=== PATIENT | female | born 1950 | race Caucasian/White ===

== ENCOUNTER → 2016-10-27 | Outpatient (CLI) | payer OTHER | LOC: OD 15:07 | PROVIDERS: ATTEND Nurse Practitioner Acute Care | DX: R50.9 Fever, unspecified (principal); R05 Cough | CPT/HCPCS: 71020; 87804 ==

== ENCOUNTER 2017-03-02 01:21 | Emergency (ER) | payer MEDICARE, OTHER ==
[2017-03-02] MEDS ORDERED: DEXAMETHASONE 4 MG TABLET PO ONE (02:45)
[2017-03-02] MEDS ORDERED: VALACYCLOVIR HCL 500 MG TABLET PO ONE (02:46)
[2017-03-02] MEDS ORDERED: MAG HYDROX/AL HYDROX/SIMETH SUSP 30 ML UDCUP PO ONE (02:46)
[2017-03-02] MEDS ORDERED: IBUPROFEN 600 MG TABLET PO ONE (02:51)
--- NOTE | 2017-03-02 02:55 | ER Document Report ---
ED Oral Problem - General Chief Complaint: Mouth Problem Stated Complaint: BLISTERS ON TONGUE Time Seen by Provider: 03/02/17 02:01 Notes: Patient is a 66-year-old female presents to the emergency department with sudden onset of ulcers in pain this evening. She states she woke up this morning out of her sleep with pain along both sides and underneath her tongue. She admits to tongue throughout the day but not as severe or with the presence of ulcers. Denies any bleeding, drainage. no skin lesions along lips, cheeks, face Past medical history significant for rheumatoid arthritis, non-insulin- dependent diabetes, narcolepsy Past surgical history significant for history of hysterectomy, right TKA, left rotator cuff repair, cholecystectomy Social history significant for 20 pack years, denies any alcohol or drug use. Home medications include venlafaxine, terbinafine, aspirin, zatr-tap-gytiukh nasal spray, trazodone, ProAir, Zofran, Adderall, methotrexate, folic acid, metformin, ropinirole Primary care physician is Rema Bob TRAVEL OUTSIDE OF THE [place] IN LAST 30 DAYS: No - Related Data Allergies/Adverse Reactions: Sulfa (Sulfonamide Antibiotics) Allergy (Intermediate, Verified 11/27/15 08:03) itch & "burning" with topical application ONLY Past Medical History - Social History Smoking Status: Unknown if Ever Smoked Family History: Reviewed & Not Pertinent Patient has suicidal ideation: No Patient has homicidal ideation: No - Past Medical History Cardiac Medical History: Reports: Hx Hypercholesterolemia - no meds now, Hx Hypertension - Dx'ed 2010, no meds x 7 months, since 30 lb wt loss Denies: Hx Coronary Artery Disease, Hx Heart Attack Pulmonary Medical History: Reports: Hx Pneumonia - March 2012, antibiotics/ steroids x 3 months, but no hospitalization Denies: Hx Asthma, Hx Bronchitis, Hx COPD, Hx Tuberculosis Neurological Medical History: Denies: Hx Cerebrovascular Accident, Hx Seizures Endocrine Medical History: Reports: Hx Diabetes Mellitus Type 2 - diet controlled since weight loss Renal/ Medical History: Denies: Hx Peritoneal Dialysis GI Medical History: Reports: Hx Irritable Bowel. Denies: Hx Crohn's Disease, Hx Gastroesophageal Reflux Disease, Hx Hiatal Hernia, Hx Liver Failure, Hx Ulcer Musculoskeltal Medical History: Reports Hx Arthritis - Had a right total knee, and is scheduled to have a left total knee done., Reports Hx Muscle Spasm Psychiatric Medical History: Reports: Hx Anxiety, Hx Depression Past Surgical History: Reports: Hx Cholecystectomy - 03/04/14, Hx Hysterectomy, Hx Orthopedic Surgery - right total knee, left rotator cuff repair. Denies: Hx Colostomy, Hx Pacemaker - Immunizations Immunizations up to date: No Hx Diphtheria, Pertussis, Tetanus Vaccination: Yes Review of Systems - Review of Systems Constitutional: No symptoms reported EENT: See HPI Cardiovascular: No symptoms reported Respiratory: No symptoms reported Skin: No symptoms reported -: Yes All other systems reviewed and negative Physical Exam - Vital signs Vitals: Temp Pulse Resp BP Pulse Ox 97.3 F 88 20 150/79 H 95 03/02/17 01:29 03/02/17 01:29 03/02/17 01:29 03/02/17 01:29 03/02/17 01:29 - General General appearance: Appears well, Alert In distress: None - HEENT Head: Normocephalic, Atraumatic Eyes: Normal Eyelashes: Normal Pupils: PERRL Ears: Normal External canal: Normal Tympanic membrane: Normal Sinus: Normal Nasal: Normal Mouth/Lips: Lesions - ulcers Mucous membranes: Normal Pharynx: Normal, Other - no lesions. No: Peritonsillar abscess, Post nasal drainage, Retropharyngeal abscess Neck: Normal - Respiratory Respiratory status: No respiratory distress Chest status: Nontender Breath sounds: Normal Chest palpation: Normal - Cardiovascular Rhythm: Regular Heart sounds: Normal auscultation Pulses: Normal: Radial Normal capillary refill: Yes - Extremities General upper extremity: Normal inspection, Nontender, Normal color, Normal ROM , Normal strength, Normal temperature General lower extremity: Normal inspection, Nontender, Normal color, Normal ROM , Normal strength, Normal temperature - Neurological Neuro grossly intact: Yes Cognition: Normal Orientation: AAOx4 [place] Coma Scale Eye Opening: Spontaneous [place] Coma Scale Verbal: Oriented [place] Coma Scale Motor: Obeys Commands Scott Coma Scale Total: 15 - Skin Skin Temperature: Warm Skin Moisture: Dry Skin Color: Normal, Petechiae Skin irregularity: other - ulcerations tongue underneath bilaterally. Course - Re-evaluation Re-evalutation: 03/02/17 07:00 Patient is a 66-year-old female hemodynamic stable, no distress and afebrile, vital signs stable. Presentation consistent with herpangina. Patient presents with no other skin lesions. Patient initiated on steroids, antivirals and discussion with following up with primary care. - Vital Signs Vital signs: Temp Pulse Resp BP Pulse Ox 97.3 F 84 16 147/72 H 95 03/02/17 01:29 03/02/17 03:06 03/02/17 03:06 03/02/17 03:06 03/02/17 03:06 Discharge - Discharge Clinical Impression: Herpangina Condition: Good Disposition: HOME, SELF-CARE Instructions: Use of Qdsh-Hsn-Sgemyev Ibuprofen ([facility]), Herpes Simplex ([facility]) Additional Instructions: Please take your second dose of Valacyclovir at 3:30 pm on 03/02/2017 Please follow up with your primary care physician Prescriptions: Valacyclovir HCl [Valacyclovir] 2,000 mg PO ONCE PRN #2 tablet PRN Reason: Forms: Elevated Blood Pressure, Smoking Cessation Education Referrals: HAIR BOB MD [NO LOCAL MD] - Follow up as needed
[2017-03-02 04:44] VITALS: BP 147/72
== END 2017-03-02 03:06 | disposition home or self-care (01) ==
LOC: ER 01:21
DX: B08.5 Enteroviral vesicular pharyngitis (principal); F17.210 Nicotine dependence, cigarettes, uncomplicated; E11.9 Type 2 diabetes mellitus without complications; Z90.49 Acquired absence of other specified parts of digestive tract; Z90.710 Acquired absence of both cervix and uterus; Z88.2 Allergy status to sulfonamides
CPT/HCPCS: 99282; A9270 ×3

== ENCOUNTER 2018-10-09 09:02 | Day surgery (SDC) | payer MEDICARE ==
[~2018-10-09 09:02] MED LIST: BUPIVACAINE HCL 0.75% INJ/PF (7.5 MG/1 ML) 10 ML SDV OS PRN; KETOROLAC TROMETHAMINE 0.45% 4 DROP/0.4 ML DROPERETTE OS PRN; LIDOCAINE 4% INJ/PF (40 MG/ML) 5 ML AMPUL OS PRN
[2018-10-09] MEDS ORDERED: CHONDR SU A NA/HYALUR INTRAOC KIT (SURGICARE) ONE (09:48)
[2018-10-09] MEDS ORDERED: EPINEPHRINE INJ/PF 1 MG/1 ML AMPULE ONE (09:48)
[2018-10-09] MEDS ORDERED: LIDOCAINE 1% INJ-PF (10 MG/ML) 30 ML SDV ONE (09:48)
[2018-10-09] MEDS: TETRACAINE HCL 0.5% OPH SOLN 0.6 ML DROPERETTE OS PRN ×2 (10:04→10:30)
[2018-10-09] MEDS: CYCLOPENTOLATE 0.2%/PHENYLEPHRINE 1% OPH SOLN 2 ML OS PRN ×3 (10:05→10:28)
[2018-10-09] MEDS: TROPICAMIDE 1% OPH SOLN 3 ML OS PRN ×3 (10:05→10:28)
[2018-10-09] MEDS: BESIFLOXACIN HCL 0.6% OPH SUSP 5 ML BOTTLE OS PRN ×4 (10:05→11:08)
[2018-10-09] MEDS ORDERED: MIDAZOLAM 2 MG/2 ML INJ ONE (10:33)
[2018-10-09] MEDS ORDERED: FENTANYL CITRATE INJ/PF 100 MCG/2 ML AMPUL ONE (10:33)
--- NOTE | 2018-10-09 14:52 | [facility] DISCHARGE SUMMARY E ---
[facility] Discharge Summary NAME: TOBI MENJIVAR AGE: 68Y ADMITTED: 10/09/2018 DISCHARGED: HOSPITAL COURSE: The patient is a 68-year-old lady who underwent uneventful cataract extraction with intraocular lens implant left eye on 10/09/2018. She will be discharged to home. She is instructed to resume preoperative medications. Take Tylenol as needed for discomfort. To keep her eye shielded. To use Pred Forte, Ilevro, and Vigamox at 3:00 p.m. and 8:00 p.m. To follow up in my office in 1 day. DICTATING PHYSICIAN: DENNISE JONES M.D. [id number] PHY#: [id number] ID: [id number] JOB#: [id number] ACCT: [id number] cc:DENNISE JONES M.D. >
--- NOTE | 2018-10-09 14:52 | [facility] OPERATIVE REPORT E ---
[facility] Operative Report NAME: TOBI MENJIVAR AGE: 68Y DATE OF SURGERY: 10/09/2018 ROOM: [facility] Operative Report PREOPERATIVE DIAGNOSIS: CATARACT, LEFT EYE. POSTOPERATIVE DIAGNOSIS: CATARACT, LEFT EYE. PROCEDURE PERFORMED: PHACOEMULSIFICATION WITH POSTERIOR CHAMBER INTRAOCULAR LENS, LEFT EYE. SURGEON: EDNNISE JONES MD ANESTHESIA: TOPICAL WITH MAC. INDICATIONS FOR SURGERY: Difficulty reading road signs and words on TV. Best corrected visual acuity 20/40. PROCEDURE: The patient was brought to the Operating Room and placed on the operative table. Following tetracaine drops, topical anesthesia was administered. This consisted of instrument wipe pledgets soaked in a solution of 4% Xylocaine mixed with 0.75% Marcaine in a 1:2 ratio. A 2 x 1 cm pledget was placed in the superior fornix. A 1 x 1 cm pledget was placed in the inferior fornix. The eye was patched shut for 5 minutes. The patch was removed. The eye was sterilely prepped and draped in the usual manner. Lid speculum was placed in the eye. The pledgets were removed. 4-0 black silk sutures were placed around the superior and the inferior rectus muscles to be used as traction. A conjunctival peritomy was made at the 10 o'clock position. Hemostasis was obtained with bipolar cautery. A posterior limbal groove was created using a crescent knife and dissected anteriorly towards the cornea. A sharp point blade was used to create a paracentesis site at the 2 o'clock position. A 2.4 mm keratome was used to enter the anterior chamber through the groove. Viscoelastic was injected into the anterior chamber. An anterior capsulotomy was performed using Utrata forceps in a capsulorrhexis fashion. Hydrodissection and hydrodelineation were performed. Phacoemulsification was performed in esciev-ady-qnzeftv technique. A total of 4.95 seconds phaco time was used. Following this, the I/A unit was used to remove residual cortex. Viscoelastic was injected into the capsular bag. Intraocular lens model SN60WF, 22.0 diopters, serial number [id number] was placed in the capsular bag. The I/A unit was used to remove residual viscoelastic. The wound was seen to be watertight under high and low pressure, and no sutures were placed. The intraocular lens was well centered. The pressure was adjusted in the eye to normal pressure. A drop of Cosopt was placed in the eye at the end of surgery. The 4-0 black silk sutures and lid speculum were removed. The eye was shielded after Besivance drops were placed. The patient tolerated the procedure well and was sent to the Recovery Room in good condition. DICTATING PHYSICIAN: DENNISE JONES M.D. DICTATING PHYSICIAN: DENNISE JONES M.D. [id number] Y#: [id number] ID: [id number] JOB#: [id number] ACCT: [id number] cc:DENNISE JONES M.D. >
== END 2018-10-09 11:50 | disposition home or self-care (01) ==
LOC: SC 09:02
PROVIDERS: ATTEND Ophthalmology
DX: H25.813 Combined forms of age-related cataract, bilateral (principal); H53.2 Diplopia; D86.0 Sarcoidosis of lung; E11.9 Type 2 diabetes mellitus without complications; E07.9 Disorder of thyroid, unspecified; M06.9 Rheumatoid arthritis, unspecified; D86.9 Sarcoidosis, unspecified; K58.9 Irritable bowel syndrome, unspecified; F17.210 Nicotine dependence, cigarettes, uncomplicated; E66.9 Obesity, unspecified; Z68.34 Body mass index [BMI] 34.0-34.9, adult; Z88.2 Allergy status to sulfonamides; Z79.899 Other long term (current) drug therapy; Z79.4 Long term (current) use of insulin; Z79.84 Long term (current) use of oral hypoglycemic drugs
CPT/HCPCS: 66984; 82962; V2632; J2250; J3490 ×4; A9270; J0171; J3010; 142

== ENCOUNTER 2018-10-30 08:54 | Day surgery (SDC) | payer MEDICARE ==
[~2018-10-30 08:54] MED LIST changes: +BUPIVACAINE HCL 0.75% INJ/PF (7.5 MG/1 ML) 10 ML SDV OD PRN; -BUPIVACAINE HCL 0.75% INJ/PF (7.5 MG/1 ML) 10 ML SDV OS PRN; +CHONDR SU A NA/HYALUR INTRAOC KIT (SURGICARE) ONE; +DORZOLAMIDE HCL 2%/TIMOLOL MALEAT 0.5% OPH SOLN 10 ML OD PRN; +EPINEPHRINE INJ/PF 1 MG/1 ML AMPULE ONE; +KETOROLAC TROMETHAMINE 0.45% 4 DROP/0.4 ML DROPERETTE OD PRN; -KETOROLAC TROMETHAMINE 0.45% 4 DROP/0.4 ML DROPERETTE OS PRN; +LIDOCAINE 1% INJ-PF (10 MG/ML) 30 ML SDV ONE; +LIDOCAINE 4% INJ/PF (40 MG/ML) 5 ML AMPUL OD PRN; -LIDOCAINE 4% INJ/PF (40 MG/ML) 5 ML AMPUL OS PRN
[2018-10-30] MEDS: TETRACAINE HCL 0.5% OPH SOLN 0.6 ML DROPERETTE OD PRN ×2 (09:52→10:21)
[2018-10-30] MEDS: TROPICAMIDE 1% OPH SOLN 3 ML OD PRN ×3 (09:53→10:18)
[2018-10-30] MEDS: CYCLOPENTOLATE 0.2%/PHENYLEPHRINE 1% OPH SOLN 2 ML OD PRN ×3 (09:53→10:18)
[2018-10-30] MEDS: BESIFLOXACIN HCL 0.6% OPH SUSP 5 ML BOTTLE OD PRN ×3 (09:54→10:55)
[2018-10-30] MEDS ORDERED: MIDAZOLAM 2 MG/2 ML INJ ONE (10:09)
[2018-10-30] MEDS ORDERED: FENTANYL CITRATE INJ/PF 100 MCG/2 ML AMPUL ONE (10:09)
[2018-10-30] MEDS ORDERED: HYALURONATE SODIUM SYRINGE 0.55 ML ONE (10:35)
--- NOTE | 2018-10-30 13:52 | [facility] OPERATIVE REPORT E ---
[facility] Operative Report NAME: TOBI MENJIVAR AGE: 68Y DATE OF SURGERY: 10/30/18 ROOM: [facility] Operative Report PREOPERATIVE DIAGNOSIS: Cataract, right eye. POSTOPERATIVE DIAGNOSIS: Cataract, right eye. PROCEDURE PERFORMED: Phacoemulsification with posterior chamber intraocular lens, right eye. SURGEON: DENNISE JONES MD ANESTHESIA: Topical with MAC. INDICATIONS FOR SURGERY: Difficulty with glare with night driving. PROCEDURE: The patient was brought to the Operating Room and placed on the operative table. Following tetracaine drops, topical anesthesia was administered. This consisted of instrument wipe pledgets soaked in a solution of 4% Xylocaine mixed with 0.75% Marcaine in a 1:2 ratio. A 2 x 1 cm pledget was placed in the superior fornix. A 1 x 1 cm pledget was placed in the inferior fornix. The eye was patched shut for 5 minutes. The patch was removed. The eye was sterilely prepped and draped in the usual manner. Lid speculum was placed in the eye. The pledgets were removed. 4-0 black silk sutures were placed around the superior and the inferior rectus muscles to be used as traction. A conjunctival peritomy was made at the 10 o'clock position. Hemostasis was obtained with bipolar cautery. A posterior limbal groove was created using a crescent knife and dissected anteriorly towards the cornea. A sharp point blade was used to create a paracentesis site at the 2 o'clock position. A 2.4 mm keratome was used to enter the anterior chamber through the groove. Viscoelastic was injected into the anterior chamber. An anterior capsulotomy was performed using Utrata forceps in a capsulorrhexis fashion. Hydrodissection and hydrodelineation were performed. Phacoemulsification was performed in nugool-gsu-bqlblsl technique. Total phaco time 6.77 CDE. Following this, the I/A unit was used to remove residual cortex. Viscoelastic was injected into the capsular bag. Intraocular lens model SN60WF, 22.0 diopters, serial number [id number] was placed in the capsular bag. The I/A unit was used to remove residual viscoelastic. The wound was seen to be watertight under high and low pressure, and no sutures were placed. The intraocular lens was well centered. The pressure was adjusted in the eye to normal pressure. The 4-0 black silk sutures and lid speculum were removed. The eye was shielded after Besivance drops were placed. The patient tolerated the procedure well and was sent to the Recovery Room in good condition. Postoperative placement in the eye at the end of surgery. DICTATING PHYSICIAN: DENNISE JONES M.D. [id number] PHY#: [id number] ID: [id number] JOB#: [id number] ACCT: [id number] cc:DENNISE JONES M.D. > MTDD
--- NOTE | 2018-10-30 15:02 | [facility] DISCHARGE SUMMARY E ---
[facility] Discharge Summary NAME: TOBI MENJIVAR AGE: 68Y ADMITTED: 10/30/2018 DISCHARGED: 10/30/2018 HOSPITAL COURSE: The patient is a 68-year-old lady who underwent uneventful cataract extraction with intraocular lens implant right eye on 10/30/2018. She will be discharged to home. She is instructed to resume preoperative medications, take Tylenol as needed for discomfort, to keep her eye shielded, to use Predforte, Ilevro, and Vigamox at 3 p.m. and 8 p.m., to follow up in my office in 1 day. DICTATING PHYSICIAN: DENNISE JONES M.D. [id number] PHY#: [id number] ID: [id number] JOB#: [id number] ACCT: [id number] cc:DENNISE JONES M.D. >
== END 2018-10-30 11:32 | disposition home or self-care (01) ==
LOC: SC 08:54
PROVIDERS: ATTEND Ophthalmology
DX: H25.811 Combined forms of age-related cataract, right eye (principal); Z96.1 Presence of intraocular lens; I10 Essential (primary) hypertension; E11.9 Type 2 diabetes mellitus without complications; E07.9 Disorder of thyroid, unspecified; G70.00 Myasthenia gravis without (acute) exacerbation; G47.30 Sleep apnea, unspecified; Z79.899 Other long term (current) drug therapy; Z88.2 Allergy status to sulfonamides
CPT/HCPCS: 66984; 82962; V2632; J2250; J3490 ×5; A9270; J0171; J3010; 142

== ENCOUNTER → 2019-06-12 | Outpatient (CLI) | payer MEDICARE ==
--- NOTE | 2019-06-12 12:04 | RADIOLOGY REPORT (SQ) ---
EXAM DESCRIPTION: SHOULDER LEFT 2 OR MORE VIEWS COMPLETED DATE/TIME: 06/12/2019 11:56 am REASON FOR STUDY: PAIN IN LEFT SHOULDER M25.512 PAIN IN LEFT SHOULDER COMPARISON: None. NUMBER OF VIEWS: Three views. TECHNIQUE: Internal rotation, external rotation, and Y view images acquired of the left shoulder. LIMITATIONS: None. FINDINGS: MINERALIZATION: Normal. BONES: No acute fracture. No worrisome bone lesions. JOINTS: Mild glenohumeral degenerative joint changes with small marginal osteophytes on the humeral h ead. VISUALIZED LUNGS AND RIBS: No pneumothorax. No rib fracture. SOFT TISSUES: No radiopaque foreign body. OTHER: No other significant finding. IMPRESSION: NEGATIVE STUDY OF THE LEFT SHOULDER. NO RADIOGRAPHIC EVIDENCE OF ACUTE INJURY. TECHNICAL DOCUMENTATION: JOB ID: [id number] [employer]- All Rights Reserved Reading location - IP/workstation name: [email or web address]
== END ==
LOC: OD 11:27
PROVIDERS: ATTEND Nurse Practitioner Family
DX: M25.512 Pain in left shoulder (principal)

== ENCOUNTER → 2020-07-31 | Outpatient (CLI) | payer MEDICARE ==
--- NOTE | 2020-07-31 11:15 | WOMENS IMAGING REPORT ---
EXAM DESCRIPTION: BONE DENSITY HIP/SPINE IMAGES COMPLETED DATE/TIME: 07/31/2020 8:43 am REASON FOR STUDY: M81.0 AGE-RELATED OSTEOPOROSIS W/O CURRENT PATHOLOGICAL FRACTURE M81.0 AGE-RELATE D OSTEOPOROSIS W/O CURRENT PATHOLOGICAL FRAC COMPARISON: None. TECHNIQUE: Dual-Energy X-ray Absorptiometry (DEXA) of the AP Spine and Hip. LIMITATIONS: None. FINDINGS: LUMBAR SPINE: The bone mineral density (BMD) measured from L1-L4 in the AP projection correlates with a T-score of 2.5, which is normal as defined by the World Health Organization. BMD Change vs Baseline: N/A HIP: The bone mineral density (BMD) measured in the left hip correlates with a T-score of -0.7, which is n ormal as defined by the World Health Organization. BMD Change vs Baseline: N/A 10 year Fracture Risk Assessment: Major Osteoporotic Fracture: Not available. Hip Fracture: Not available. IMPRESSION: 1. LUMBAR SPINE WHO CLASSIFICATION: NORMAL. 2. HIP WHO CLASSIFICATION: NORMAL. OVERALL ASSESSMENT: WHO CLASSIFICATION: NORMAL. COMMENT: The World Health Organization defines low BMD as follows: T-score: Normal: At or above -1.0 Osteopenia: Between -1.0 and -2.5 Osteoporosis: At or below -2.5 without fractures Established osteoporosis: At or below -2.5 with fractures In general, you may wish to consider: Diagnosis Treatment Follow-up DEXA Normal BMD Prevention 2-3 years Osteopenia Prevention/Therapy 1-2 years Osteoporosis Therapy Yearly TECHNICAL DOCUMENTATION: JOB ID: [id number] 2010 [employer]- All Rights Reserved Reading location - IP/workstation name: [email or web address]
== END ==
LOC: WI 08:21
PROVIDERS: ATTEND Family Medicine
DX: M81.0 Age-related osteoporosis without current pathological fracture (principal)
CPT/HCPCS: 77080